=== PATIENT | female | born 1995 | race Caucasian/White ===

== ENCOUNTER 2019-07-29 17:32 | Emergency (ER) | payer OTHER ==
[~2019-07-29] VITALS: Ht 165.1 cm; Wt 76.0 kg
[2019-07-29 17:39] VITALS: BP 122/73
[2019-07-29] MEDS ORDERED: ESCI10TA PO (18:45)
== END 2019-07-29 19:03 | disposition home or self-care (01) ==
LOC: ER 17:33
DX: F41.9 Anxiety disorder, unspecified (principal); F32.9 Major depressive disorder, single episode, unspecified; Z79.899 Other long term (current) drug therapy
CPT/HCPCS: 99281